=== PATIENT | female | born 1965 | race Caucasian/White ===

== ENCOUNTER → 2019-11-17 | Outpatient (CLI) | payer BC ==
[~2019-11-17] MED LIST: ACET500T68 PO; ASCO500C PO; CALC-178 PO; FLUO10CA13 PO; GLUC-11 PO; HYDR-2765 PO; IBUP200T58 PO; MAGN500C10 PO; multivitamin gummies; tumeric
--- NOTE | 2019-11-17 13:27 | KCIC ---
EXAM: Cervical spine MRI without contrast. HISTORY: Pain. TECHNIQUE: Multiplanar, multisequence magnetic resonance imaging of the cervical spine was performed without contrast. COMPARISON: None. FINDINGS: There is instrumented anterior spinal fusion and interbody fusion at C4-C6. There is minimal anterolisthesis of C3 to on C3. There is degenerative endplate remodeling at all levels. There is associated endplate edema due to degenerative change on the left at C6-C7. There is disc space narrowing at C6-C7. There is no fracture there is disc space narrowing at this level. There is no fracture or suspicious osseous lesion. The skull base and posterior fossa are unremarkable. There is deformation of the cervical spinal cord at multiple levels due to stenosis. There is linear T2 hyperintensity within the right ventral aspect of the cervical spinal cord at C5-C6. This measures approximately 4 mm greater caudally by 2 mm transversely by 1 mm anteroposteriorly and is consistent with myelomalacia. No spinal cord edema, demyelination or syringohydromyelia is seen. There is a small incidental osseous hemangioma within C2. At C2-C3, there is severe right and mild left facet arthropathy. There is moderate right foraminal stenosis. There is a suspected 10 mm posterior left facet joint synovial cyst. At C3-C4, there is a left posterior lateral disc protrusion and osteophyte complex superimposed on endplate remodeling. There is mild right and moderate left facet arthropathy. There is left uncovertebral arthropathy. There is severe left foraminal stenosis. There is minimal central canal stenosis measuring 9.0 mm in anterior posterior dimension. At C4-C5, there is instrumented fusion. There is a right paracentral osteophyte which slightly deforms the right ventral aspect of the spinal cord. There is mild left facet arthropathy. There is no stenosis. At C5-C6, there is instrumented fusion. There is a posterior central osteophyte which deforms the ventral aspect of spinal cord. There is a small focus of myelomalacia within the right ventral aspect of the spinal cord at this level. There is mild central canal stenosis measuring 8.3 mm in anterior posterior dimension. At C6-C7, there is a diffuse disc bulge and endplate osteophytosis. There is bilateral uncovertebral arthropathy. There is severe bilateral foraminal stenosis. There is deformation of the spinal cord and moderate central canal stenosis measuring 6.8 mm in each posterior dimension. At C7-T1, there is a shallow right lateral recess disc protrusion. There is mild right and moderate left facet arthropathy. There is mild right foraminal stenosis. There are incidental dilated nerve root sheath cysts within the extra foraminal spaces at this level. IMPRESSION: 1. Instrumented anterior spinal fusion and interbody fusion at C4-C6. 2. Tiny focus of myelomalacia within the right ventral aspect of the cervical spinal cord at C5-C6. 3. Multilevel degenerative change throughout the cervical spine, described in detail above. This results in moderate right foraminal stenosis at C2-C3, severe left foraminal and minimal central canal stenosis at C3-C4, mild central canal stenosis at C5-C6, severe bilateral foraminal and moderate central canal stenosis at C6-C7, and mild right foraminal stenosis at C7-T1. Electronically signed by: Mariaelena Cuellar MD (11/17/2019 1:24 PM) [facility]
--- NOTE | 2019-11-17 13:35 | KCIC ---
EXAM: Lumbar spine MRI without contrast. HISTORY: Lower back pain. TECHNIQUE: Multiplanar, multisequence magnetic resonance imaging of the lumbar spine was performed without contrast. COMPARISON: None. FINDINGS: There is mild lumbar scoliosis and hyperlordosis. There is grade 1 anterolisthesis of L5 on S1, measuring 3 mm. There is 3 mm retrolisthesis of L2 on L3 and L3 on L4. There is multilevel endplate remodeling. There is edema within the right greater than left L5 and S1 pedicles, the appearance of which favors a degenerative etiology or stress reaction. No fracture is seen. At L1-L2, there is no stenosis. At L2-L3, there is endplate remodeling. There is mild retrolisthesis. There is mild bilateral foraminal stenosis. At L3-L4, there is a disc bulge and endplate remodeling. There is minimal bilateral facet arthropathy. There is slight retrolisthesis. There is no stenosis. At L4-L5, there is moderate bilateral facet arthropathy. There is no stenosis. At L5-S1, there is bilateral lateral endplate remodeling. There is moderate right and severe left facet arthropathy. There is grade 1 anterolisthesis. There is mild right greater than left foraminal stenosis. IMPRESSION: 1. Multilevel degenerative change involving the lumbar spine, described in detail above. This is associated with mild bilateral foraminal stenosis at L2-L3 and L5-S1. 2. Mild lumbar scoliosis and hyperlordosis. There is also mild listhesis at the aforementioned levels. 3. Edema within the right greater than left L5 and S1 pedicles, likely degenerative or due to a stress reaction. No fracture is seen. Electronically signed by: Mariaelena Cuellar MD (11/17/2019 1:32 PM) [facility]
== END ==
LOC: KCIC MRI 12:22
PROVIDERS: ATTEND Family Medicine
DX: M47.816 Spondylosis without myelopathy or radiculopathy, lumbar region (principal); G95.89 Other specified diseases of spinal cord; M48.03 Spinal stenosis, cervicothoracic region; M41.86 Other forms of scoliosis, lumbar region; G95.19 Other vascular myelopathies
CPT/HCPCS: 72141; 72148

== ENCOUNTER → 2019-11-25 | Outpatient (CLI) | payer BC ==
[~2019-11-25] MED LIST changes: +IOHEXOL 180 MG/ML 10 ML VIAL. ONE; +methylPREDNISolone ACETATE 40 MG/ML VIAL. ONE; +methylPREDNISolone ACETATE 80 MG/ML VIAL. ONE
--- NOTE | 2019-11-25 12:23 | PDOC2 ---
INITIAL PAIN CONSULT DATE OF SERVICE: DOS: DATE: 11/25/19 TIME: 12:13 CHIEF COMPLAINT: Chief Complaint: Low back and bilateral lower extremity pain Neck and bilateral upper extremity pain HISTORY OF PRESENT ILLNESS: 54-year-old female presents history of pain in the low back bilateral lower extremities for about 4 months now. Patient ports not result of any specific injury or accident that she is aware but had pain for years is been getting worse over the past 4 months or so. Patient reports in the low back bilateral lower extremities posterior gluteus posterior lateral thighs posterior calves and occasionally in the lower legs mostly in the back itself patient reports it is constant sharp stabbing throbbing shooting in the legs occasionally intermittent in intensity always present changes during the day burning and aching as well. Patient which is worse with walking standing change positions also awakens her from sleep about 4-5 times at night. Patient reports it can affect her bowel bladder control but no loss of continence just some increased frequency does affect her ability to walk fairly significantly but she is not using any assistive devices. Patient rates her disability rating 0-10 10 being the worst as an 8-9 with family home responsibilities 8 with recreation social activity 7-8 with occupation sexual behavior 7 8 with self-care and a 9 with life support activities. Patient has had physical therapy in the past also chiropractic treatment which is not been very helpful at some trigger point injections 2011 and epidural injections which were not significant helpful as well. Patient is taking hydrocodone Tylenol Advil all of which did not decrease the pain significantly. Patient is currently doing some exercise and therapy on her own but no formal therapy recently. PAST MEDICAL HISTORY: PMH: Hearing loss, arthritis, osteoporosis, cigarette smoking PREVIOUS SURGERIES: Past Surgical Hx: Cervical fusion 2005, 2002, right ankle ORIF and right leg plating of the tibia CURRENT MEDICATIONS: Current Meds: Active Scripts Medications Dose Route/Sig Max Daily Dose Days Date Category Vitamin C (Ascorbic Acid) 500 Mg Capsule.er 2 Cap PO DAILY 30 11/25/19 Reported [multivitamin gummies] 2 DAILY 11/25/19 Reported Magnesium (Magnesium Oxide) 500 Mg Capsule 600 Mg PO BID 11/25/19 Reported Cidaflex Tablet (Glucosamine Hcl/Chondr Flaherty A Na) 1 Each Tablet 2 Each PO BID 11/25/19 Reported [tumeric] 1 11/25/19 Reported Calcium 1,000 + D3 Caplet (Calcium Carbonate/Vitamin D3) 1 Each Tablet 1 Each PO BID 11/25/19 Reported Advil (Ibuprofen) 200 Mg Tablet 400 Mg PO Q6HRS 11/25/19 Reported Acetaminophen 500 Mg Tablet 2 Tab PO PRN Q6HRS PRN 15 11/25/19 Reported Hydrocodone-Apap 7.5-325 (Hydrocodone Bit/Acetaminophen) 1 Tab Tablet 1 Tab PO PRN Q6HRS PRN 11/25/19 Reported Prozac (Fluoxetine Hcl) 10 Mg Capsule 1 Cap PO HS 11/25/19 Reported ALLERGIES; Allergies: Coded Allergies: morphine (Verified Adverse Reaction, Intermediate, itching, 11/25/19) FAMILY HISTORY: Family Hx: No major medical problems or conditions that she lists SOCIAL HISTORY: Social Hx: Patient drinks alcohol once or twice a year smokes very little but does smoke cigarettes occasionally smokes marijuana up to daily is single [place] 1 child living at home and has her own [employer]. REVIEW OF SYSTEMS: ROS: Positive for those items in history of present illness, all systems reviewed otherwise negative ,is complete full and well-documented on patient's chart. PHYSICAL EXAM: VS: Blood pressure is 120/46 pulse 63 respiration 16 temperature 98.9 F height is 5 feet 4 inches weight is 180 pounds PE: PHYSICAL EXAMINATION: GENERAL: The patient is awake, alert, oriented, appropriate, very pleasant demeanor HEENT: Shows normocephalic, atraumatic. Extraocular movements are intact and symmetrical. Oral cavity: Mucous membranes moist and pink. Dentition is intact. NECK: Shows anterior throat supple without palpable lymphadenopathy noted. Swallow reflex symmetrical. CHEST: Shows normal on inspection. Breath sounds are clear bilaterally, no rales rhonchi or wheezes auscultated. HEART: Shows S1, S2 clear. No murmurs auscultated. ABDOMEN: Soft, nontender, nondistended. No palpable organomegaly is noted. No rebound or guarding demonstrated. BACK: Shows spine grossly in the midline. Normal-appearing cervical lordotic curvature, patient has good rotation motion cervical spine both laterally as well as extension flexion without significant increase in pain.. There is slightly increased thoracic kyphosis, some minor flattening of the lumbar lordotic curvature. Lumbar paraspinous muscles show symmetrical on inspection, on palpation shows some moderate tenderness diffusely throughout the upper, middle and lower distribution of the paraspinous muscles bilaterally and also into the lower thoracic paraspinous musculature, firm and tender, but without specific trigger points, without radiation of pain. The patient has good rotational motion of the lumbar spine, both laterally as well as extension and flexion without significant difficulty. No tenderness over the spinous processes, sacrum or sacroiliac regions. EXTREMITIES: Lower extremities show deep tendon reflexes 2+ in the patellar and tendo calcaneus tendons. Motor exam is 4 on a scale of 5 with right dorsiflexion, extension, quadriceps and hamstring flexion and 5/5 on the left. Peripheral pulses are 1+ posterior tibial. No peripheral edema is noted bilaterally. Lower extremities are warm and dry to touch, equal in color and appearance. Straight leg raise noted to be negative bilaterally. Gaenslen's and Royer's maneuvers are [] as well. The patient is able to stand, stand her toes without significant difficulty or loss of balance walks with a normal- appearing gait without any assistive devices did not appear to favor the right or left lower extremity significantly. Upper extremities show deep tendon reflexes at 2+ in the biceps and triceps tendons motor exam strong with architectural engineer strength rated 5 out of 5 as is bicep and tricep flexion and symmetrical. Peripheral pulses are 2+ radial no peripheral edema is noted bilaterally. SKIN: Shows warm and dry, good turgor. No edema. No sores, rashes or bruising throughout. IMPRESSION: Impression: 54-year-old female with approximate 4-month history increasing pain low back bilateral lower extremities MRI scan lumbar spine with multilevel degenerative change with mild bilateral foraminal stenosis at L2-3 and L5-S1 Cervical MRI scan with instrumented spinal fusion at C4-C6 with multilevel degenerative change throughout the cervical spine mild right foraminal stenosis at C2-C3 severe left foraminal and minimal central canal stenosis at C3-4 mild central canal stenosis C5-C6 severe bilateral foraminal and mild to moderate central canal stenosis at C6-7 Arthritis Smoking and marijuana use Plan: Options were discussed with the patient including conservative medical management physical therapies interventional techniques. She like to pursue dimensional techniques. We discussed a lumbar epidural steroid just use description as well as anatomical model to describe the procedure. Risks were discussed including but not limited to: Bleeding, infection, possibility of epidural hematoma and subsequent neurological compromise, dural puncture, headaches, spinal cord and/or nerve damage, side effects of steroid medication, and poor results regarding pain control. Patient understands wished to proceed. Patient return to clinic in possibly 2 weeks for follow-up was counseled as return appointment activity level and side effects to be aware of. Procedure is lumbar epidural steroid injection under local anesthetic using sterile prep and drape at the L5-S1 level using C-arm fluoroscopic guidance in both AP and lateral views medications injected is 120 mg Depo-Medrol + 10 mL preservative-free normal saline and 2 mL contrast- condition at discharge is stable patient tolerated procedure well had no complications. COY COTTRELL MD Nov 25, 2019 12:23
== END | disposition home or self-care (01) ==
LOC: PNCL 08:21
PROVIDERS: ATTEND Anesthesiology
DX: M51.36 Other intervertebral disc degeneration, lumbar region (principal); M48.061 Spinal stenosis, lumbar region without neurogenic claudication; M48.02 Spinal stenosis, cervical region; M19.90 Unspecified osteoarthritis, unspecified site; Z87.891 Personal history of nicotine dependence; Z88.8 Allergy status to other drugs, medicaments and biological substances; Z79.899 Other long term (current) drug therapy
CPT/HCPCS: 62323; J1030; J1040; Q9965

== ENCOUNTER → 2020-01-11 | Outpatient (CLI) | payer BC ==
[~2020-01-11] MED LIST changes: +BUPIVACAINE MPF 0.25% 10 ML VIAL. ONE
--- NOTE | 2020-01-11 09:02 | PDOC ---
Progress Note - Pain Clinic Date of Service: DOS: DATE: 01/11/20 TIME: 08:57 Diagnosis: Dx: Lumbar degenerative disc disease with lumbar and lumbosacral spondylosis Cervical radiculopathy with cervical degenerative disease and cervical postlaminectomy syndrome History or Present Illness: HPI: 54-year-old female returns follow-up status post lumbar epidural steroid injection x1. Patient reports only minimal decrease in pain for about 2 days and the pain returned now only in the back itself without radiation to lower extremity on the right side that she had previously but the back is still significantly painful with rotation motion especially with extension of the lumbar spine axial loading better with forward flexion worse with sitting for prolonged periods walking for about 10 to 15 minutes is all she can manage because of the pain patient reports it is keeping her from sleep at night about every 5 hours awakens her from sleep for the first few days she was doing better but the pain is fairly significant in the low back since that time however her right leg is doing much better. Patient ports her pain is a 10 on scale 10 is worse of the past week 8-9 on average 7-8 on its least is an 8 today patient describes aching sharp dull tight shooting across the back burning cramping stabbing again not radiating to the lower extremities any further but to severe and unbearable at times with sitting or standing and walking. Patient reports difficulty getting up from a seated position as well she has gait is very slow and deliberately pressure off of her back especially with extension of the lumbar spine. Physical Exam: VS: Blood pressure is 131/79 pulse 67 respirations 18 temperature 98.2 F height is 5 feet 4 inches weight is 182 pounds PE: PHYSICAL EXAMINATION: GENERAL: The patient is awake, alert, oriented, appropriate, very pleasant demeanor HEENT: Shows normocephalic, atraumatic. Extraocular movements are intact and symmetrical. Oral cavity: Mucous membranes moist and pink. NECK: Shows anterior throat supple without palpable lymphadenopathy noted. Swallow reflex symmetrical. CHEST: Shows normal on inspection. Breath sounds are clear bilaterally. HEART: Shows S1, S2 clear. No murmurs auscultated. ABDOMEN: Soft, nontender, nondistended, obese. No palpable organomegaly is noted. No rebound or guarding demonstrated. BACK: Shows spine grossly in the midline. Normal-appearing cervical lordotic curvature. There is slightly increased thoracic kyphosis, some minor flattening of the lumbar lordotic curvature. Lumbar paraspinous muscles show symmetrical on inspection, on palpation shows some moderate tenderness diffusely throughout the upper, middle and lower distribution of the paraspinous muscles bilaterally without specific trigger points, without radiation of pain. The patient has good rotational motion of the lumbar spine, with significant tenderness with extension greater than 10 degrees also right and left lateral rotation worse to the right greater than 10 degrees but also present to the left at 10 degrees better with forward flexion at 45 degrees without significant pain reported. No tenderness over the spinous processes, sacrum or sacroiliac regions. EXTREMITIES: Lower extremities show deep tendon reflexes 2+ in the patellar and tendo calcaneus tendons. Motor exam is 4 on a scale of 5 with right dorsiflexion, extension, quadriceps and hamstring flexion and 5/5 on the left. Peripheral pulses are 1+ posterior tibial. No peripheral edema is noted bilaterally. Lower extremities are warm and dry to touch, equal in color and appearance. SKIN: Shows warm and dry, good turgor. No edema. No sores, rashes or bruising throughout. Procedure: Procedure: Options were discussed with the patient. Patient's old chart was reviewed as her current medication regimen updated current review of systems updated today as well. We will proceed with bilateral L4-5 and L5-S1 facet joint injections with fluoroscopic guidance. Risks were discussed including but not limited to: Bleeding, infection, possibility of epidural hematoma and subsequent neurological compromise, dural puncture, headaches, spinal cord and/or nerve damage, side effects of steroid medication, and poor results regarding pain control. Patient understands wished to proceed. Patient return to the clinic in approximate 2 weeks for follow-up was counseled as to return appointment activity level and side effects to be aware of. Medication Injected: Med Injected: Under sterile prep and drape using C-arm fluoroscopic guidance AP and lateral and oblique views, bilateral L4-5 and L5-S1 facet joint injections, medications injected: 120 mg Depo-Medrol +4 cc 0.25% bupivacaine +2 cc contrast. Condition at discharge stable patient tolerated the procedure well and no complications. Condition at Discharge: Condition at Discharge: Condition at discharge is stable patient tolerated procedure well had no complications. COY COTTRELL MD Jan 11, 2020 09:01
== END ==
LOC: PNCL 08:15
PROVIDERS: ATTEND Anesthesiology
DX: M51.36 Other intervertebral disc degeneration, lumbar region (principal); M50.10 Cervical disc disorder with radiculopathy, unspecified cervical region; M46.1 Sacroiliitis, not elsewhere classified; M47.816 Spondylosis without myelopathy or radiculopathy, lumbar region; M47.817 Spondylosis without myelopathy or radiculopathy, lumbosacral region; Z88.8 Allergy status to other drugs, medicaments and biological substances; Z79.899 Other long term (current) drug therapy
CPT/HCPCS: 64493; 64494; J1030; J1040; J3490; Q9965; 64635; 64636

== ENCOUNTER → 2020-02-02 | Outpatient (CLI) | payer BC ==
[~2020-02-02] MED LIST changes: -BUPIVACAINE MPF 0.25% 10 ML VIAL. ONE; -IOHEXOL 180 MG/ML 10 ML VIAL. ONE; -methylPREDNISolone ACETATE 40 MG/ML VIAL. ONE; -methylPREDNISolone ACETATE 80 MG/ML VIAL. ONE
--- NOTE | 2020-02-02 09:04 | PDOC ---
Progress Note - Pain Clinic Date of Service: DOS: DATE: 02/02/20 TIME: 08:58 Diagnosis: Dx: Lumbar radiculopathy with lumbar degenerative disc disease lumbar and lumbosacral spondylosis Cervical radiculopathy with cervical degenerative disease and cervical postlaminectomy syndrome History or Present Illness: HPI: 54-year-old female returns follow-up status post epidural steroid injection x1 and lumbar bilateral facet joint injections x1. Patient reports no significant decrease in pain with the epidural however had 2 days of almost 100% relief after the injections but the pain returned fairly quickly and now has significant pain in the low back bilaterally worse with walking standing changing positions better with sitting or laying down but has been waking her from sleep sporadically over the last 2 weeks or so. Patient reports she is upset today because she is having difficulty with her job and is worried about her insurance coverage in the future. Patient reports the pain is in the low back itself some pain rating to the superior aspect of the mid and upper back mostly in the low back aching sharp dull tight and shooting burning and stabbing can be constant and severe unbearable at times rates her pain is a 9 on scale 10 is worse over the past week 9-10 on average and 8 its least and is an 8 today. Patient reports no new motor or sensory deficits no new bowel or bladder incontinence or complaints. Physical Exam: VS: Blood pressure is 123/70 pulse 74 respirations are 16 temperature 98.3 F height is 5 feet 4 inches weight is 174 pounds PE: PHYSICAL EXAMINATION: GENERAL: The patient is awake, alert, oriented, appropriate, very pleasant demeanor HEENT: Shows normocephalic, atraumatic. Extraocular movements are intact and symmetrical. Oral cavity: Mucous membranes moist and pink. NECK: Shows anterior throat supple without palpable lymphadenopathy noted. Swallow reflex symmetrical. CHEST: Shows normal on inspection. Breath sounds are clear bilaterally. HEART: Shows S1, S2 clear. No murmurs auscultated. ABDOMEN: Soft, nontender, nondistended. No palpable organomegaly is noted. No rebound or guarding demonstrated. BACK: Shows spine grossly in the midline. Normal-appearing cervical lordotic curvature. There is slightly increased thoracic kyphosis, some minor flattening of the lumbar lordotic curvature. Lumbar paraspinous muscles show symmetrical on inspection, on palpation shows some moderate tenderness diffusely throughout the upper, middle and lower distribution of the paraspinous muscles bilaterally and also into the lower thoracic paraspinous musculature, firm and tender bilaterally, but without specific trigger points, and without radiation of pain. The patient has good rotational motion of the lumbar spine, both laterally, with moderate tenderness more to the right than the left with rotation past 10 degrees also significantly no tenderness over the spinous processes, sacrum or sacro pain with extension greater than 10 degrees and axial loading of the lumbar spine better with forward flexion at 45 degrees was performed without significant difficulty. EXTREMITIES: Lower extremities show deep tendon reflexes 2+ in the patellar and tendo calcaneus tendons. Motor exam is 4 on a scale of 5 with right dorsiflexion, extension, quadriceps and hamstring flexion and 5/5 on the left. Peripheral pulses are 1+ posterior tibial. No peripheral edema is noted bilaterally. Lower extremities are warm and dry to touch, equal in color and appearance. SKIN: Shows warm and dry, good turgor. No edema. No sores, rashes or bruising throughout. Procedure: Procedure: Options were discussed with the patient. Patient chart was reviewed as her current medication regimen updated current review of systems updated today as well. Milo options and patient would like to wait to better evaluate her job situation and insurance situation in the near future. We discussed radiofrequency ablation as she has done well with this about 8 years ago in the lumbar spine and with good results after first diagnostic blocks would recommend repeating these to ensure that we can reproduce the results. Patient understands would like to wait to assess her insurance situation first. We will give patient Medrol Dosepak to try in the meantime as well as changing her medication from hydrocodone to oxycodone 7.5 mg. Patient given instructions will side effects with each of the medications will follow-up as scheduled. Medication Injected: Med Injected: None Condition at Discharge: Condition at Discharge: Condition at discharge is stable. COY COTTRELL MD Feb 02, 2020 09:04
== END | disposition home or self-care (01) ==
LOC: PNCL 08:31
PROVIDERS: ATTEND Anesthesiology
DX: M51.16 Intervertebral disc disorders with radiculopathy, lumbar region (principal); M47.26 Other spondylosis with radiculopathy, lumbar region; M50.10 Cervical disc disorder with radiculopathy, unspecified cervical region; M96.1 Postlaminectomy syndrome, not elsewhere classified; Z79.899 Other long term (current) drug therapy; Z88.6 Allergy status to analgesic agent
CPT/HCPCS: 99212; G0463

== ENCOUNTER → 2021-05-01 | Outpatient (CLI) | payer MEDICAID ==
[~2021-05-01] MED LIST changes: +BUPR150T21 PO; +BUSP10TA PO; +DULO60CA7 PO; +GABA300C18 PO; +IOHEXOL 180 MG/ML 10 ML VIAL. ONE; +OLAN1TAB5 PO; +methylPREDNISolone ACETATE 80 MG/ML VIAL. ONE
--- NOTE | 2021-05-01 10:58 | PDOC ---
Progress Note - Pain Clinic Date of Service: DOS: DATE: 05/01/21 TIME: 10:53 Diagnosis: Dx: Lumbar radiculopathy with lumbar degenerative disc disease and lumbar spondylosis Cervical radiculopathy with cervical degenerative disease cervical postlaminectomy syndrome History or Present Illness: HPI: 55-year-old female returns last seen January 2020, with complaints of neck and bilateral upper extremity pain as well as low back pain with complaints of pain over the past 5 to 6 months now increasing low back and now with radicular pain significantly in the right lower extremity as she had undergone medial branch facet blocks for low back pain however now the pain is changed and is in the right lower extremity in the posterior gluteus posterior thigh posterior calf as well as the lateral thigh calf on the right side worse with walking standing changing positions patient also has pain the base the neck and shoulders with radiating pain in the upper extremities and status post cervical 3 4 fusion anteriorly in July 2020. Patient reports her chief complaint is low back right lower extremity pain tingling and burning in the arms and legs dull pain in the neck and back and variable in the back at times worse with standing walking or standing still for more than 10 to 15 minutes patient reports is better with sitting or lying down but wakes her from sleep at least 2-4 times at night patient reports he needs to reposition or take pain medication and to get out of bed and walking to get back to sleep after that. Patient rates her pain as a 9 on a scale of 10 at its worst of the past week 8 on average 6 its least is a 7 today. Patient reports no motor deficits but significant fatigability of the right lower extremity with ambulation. Patient not use any assistive devices. Patient reports no bowel or bladder incontinence. Physical Exam: VS: Blood pressure is 04/11/1952 pulse 77 respirations are 18 temperature is 98.3 F height is 5 feet 4 inches weight is 214 pounds. PE: PHYSICAL EXAMINATION: GENERAL: The patient is awake, alert, oriented, appropriate, very pleasant in demeanor HEENT: Shows normocephalic, atraumatic. Extraocular movements are intact and symmetrical. Oral cavity: Mucous membranes moist and pink. Dentition is intact. NECK: Shows anterior throat supple without palpable lymphadenopathy noted. Swallow reflex symmetrical. CHEST: Shows normal on inspection. Breath sounds are clear bilaterally, no rales or rhonchi. HEART: Shows S1, S2 clear. No murmurs auscultated. ABDOMEN: Soft, nontender, nondistended. No palpable organomegaly is noted. BACK: Shows spine grossly in the midline. Normal-appearing cervical lordotic curvature. There is slightly increased thoracic kyphosis, some flattening of the lumbar lordotic curvature. Lumbar paraspinous muscles show symmetrical on inspection, on palpation shows some moderate tenderness diffusely throughout the upper, middle and lower distribution of the paraspinous muscles without specific trigger points, without radiation of pain. The patient has good rotational motion of the lumbar spine, both laterally as well as extension and flexion without significant difficulty. No tenderness over the spinous processes, sacrum or sacroiliac regions. EXTREMITIES: Lower extremities show deep tendon reflexes 2 in the patellar and tendo calcaneus tendons. Motor exam is 4 on a scale of 5 with right dorsiflexion, extension, quadriceps and hamstring flexion and []/5 on the left. Peripheral pulses are 1 posterior tibial. No peripheral edema is noted bilaterally. Lower extremities are warm and dry to touch, equal in color and appearance. Upper extremities show deep tendon reflexes 2+ in the bicep tricep tendons, motor exam strong with manager supplier strength rated 5 out of 5 as is bicep and tricep flexion bilaterally. Shoulder shrug is strong and intact without loss of strength on resistance. SKIN: Shows warm and dry, good turgor. No edema. No sores, rashes or bruising throughout. Procedure: Procedure: Options were discussed with the patient. Patient's old chart was viewed as her current medication regimen updated current review of systems updated today as well. As patient has clinical radiculopathy in the right L5-S1 dermatomal distribution, we will proceed with a lumbar epidural steroid injection today with fluoroscopic guidance. Risks were discussed including but not limited to: Bleeding, infection, possibility of epidural hematoma and subsequent neurological compromise, dural puncture, headaches, spinal cord and/or nerve damage, side effects of steroid medication, and poor results regarding pain control. Patient understands and wished to proceed. Patient will return to the clinic in approximately 2 weeks for follow-up, was counseled as to return appointment, activity level, and side effects to be aware of. Medication Injected: Med Injected: Procedure is lumbar epidural steroid injection under local anesthetic using sterile prep and drape at the L5-S1 level using C-arm fluoroscopic guidance in both AP and lateral views medications injected is 120 mg Depo-Medrol +10mL preservative-free normal saline and 2 mL contrast- condition at discharge is stable patient tolerated procedure well had no complications. Condition at Discharge: Condition at Discharge: Condition at discharge stable, paced tolerated procedure well and had no complications. COY COTTRELL MD May 01, 2021 10:58
--- NOTE | 2021-05-01 10:59 | PDOC4 ---
Procedure Note: ICD 10 Code: ICD 10 Code: M54.17 M51.87 Procedure Note: Patient was consented for lumbar epidural steroid injection with fluoroscopic guidance. Risks were discussed including but not limited to: Bleeding, infection, possibility of epidural hematoma and subsequent neurological compromise, dural puncture, headaches, spinal cord and/or nerve damage, side effects of steroid medication, and poor results regarding pain control. Patient understands and wished to proceed. Procedure is lumbar epidural steroid injection under local anesthetic using sterile prep and drape at the L5-S1 level using C-arm fluoroscopic guidance in both AP and lateral views medications injected is 120 mg Depo-Medrol +10mL preservative-free normal saline and 2 mL contrast- condition at discharge is stable patient tolerated procedure well had no complications. COY COTTRELL MD May 01, 2021 10:59
== END | disposition home or self-care (01) ==
LOC: PNCL 10:02
PROVIDERS: ATTEND Anesthesiology
DX: M51.16 Intervertebral disc disorders with radiculopathy, lumbar region (principal); M47.26 Other spondylosis with radiculopathy, lumbar region; M50.10 Cervical disc disorder with radiculopathy, unspecified cervical region; M96.1 Postlaminectomy syndrome, not elsewhere classified; Z79.899 Other long term (current) drug therapy; Z88.6 Allergy status to analgesic agent
CPT/HCPCS: 62323; J1040; Q9965

== ENCOUNTER → 2021-05-28 | Outpatient (CLI) | payer MEDICAID ==
[~2021-05-28] MED LIST changes: +MAGN500C PO; -MAGN500C10 PO; -methylPREDNISolone ACETATE 80 MG/ML VIAL. ONE
--- NOTE | 2021-05-28 11:22 | PDOC ---
Progress Note - Pain Clinic Date of Service: DOS: DATE: 05/28/21 TIME: 11:19 Diagnosis: Dx: Lumbar radiculopathy with lumbar degenerative disease and lumbar and lumbosacral spondylosis History or Present Illness: HPI: 55-year-old female returns for follow-up status post lumbar epidural steroid injection patient reports near 1% improvement for the first week of the pain returned fairly significantly and now is on the left leg as well as the right leg with previously was only on the right side patient reports is now rating to left leg not as severely as the right but still significant patient reports in the posterior gluteus posterior thigh posterior calf again some on the lateral right hip as well but now on the left posterior thigh and calf. Patient reports no recent injuries no new motor or sensory deficits no bowel or bladder incontinence patient reports her pain is a 9 on scale 10 is worse over the past week 8 on average 6 at its least and is a 6 today patient describes a sharp in the back shooting the legs tingling and burning can be constant with walking standing better with sitting or laying down for the first week or so patient was doing much better with increased distance walking doing household activities work activities try with greater ease and comfort but now the pain returning no bowel or bladder incontinence however, just new findings of increased pain in the left lower extremity as well as the right. Physical Exam: VS: Blood pressure is 158/83 pulse 70 respirations 18 temperature is 98.2 F height is 5 feet 4 inches weight is 219 pounds. PE: PHYSICAL EXAMINATION: GENERAL: The patient is awake, alert, oriented, appropriate, very pleasant in demeanor HEENT: Shows normocephalic, atraumatic. Extraocular movements are intact and symmetrical. Oral cavity: Mucous membranes moist and pink. Dentition is intact. NECK: Shows anterior throat supple without palpable lymphadenopathy noted. Swallow reflex symmetrical. CHEST: Shows normal on inspection. Breath sounds are clear bilaterally. HEART: Shows S1, S2 clear. No murmurs auscultated. ABDOMEN: Soft, nontender, nondistended. No palpable organomegaly is noted. BACK: Shows spine grossly in the midline. Normal-appearing cervical lordotic curvature. There is slightly increased thoracic kyphosis, some mild flattening of the lumbar lordotic curvature. Lumbar paraspinous muscles show symmetrical on inspection, on palpation shows some moderate tenderness diffusely throughout the upper, middle and lower distribution of the paraspinous muscles without specific trigger points, without radiation of pain. The patient has good rotational motion of the lumbar spine, both laterally as well as extension and flexion without significant difficulty. No tenderness over the spinous processes, sacrum or sacroiliac regions. EXTREMITIES: Lower extremities show deep tendon reflexes 2+ in the patellar and tendo calcaneus tendons. Motor exam is 4 on a scale of 5 with right dorsiflexion, extension, quadriceps and hamstring flexion and 5/5 on the left. Peripheral pulses are 1+ posterior tibial. No peripheral edema is noted bilaterally. Lower extremities are warm and dry to touch, equal in color and appearance. SKIN: Shows warm and dry, good turgor. No edema. No sores, rashes or bruising throughout. Procedure: Procedure: Options discussed with the patient. Patient's old chart was reviewed as her current medication regimen updated current review of systems updated today as well. We will proceed with a lumbar epidural steroid injection today with fluoroscopic guidance. Risks were discussed including but not limited to: Bleeding, infection, possibility of epidural hematoma and subsequent neurological compromise, dural puncture, headaches, spinal cord and/or nerve damage, side effects of steroid medication, and poor results regarding pain control. Patient understands and wished to proceed. Patient will return to the clinic in approximately 2 weeks for follow-up, was counseled as to return appointment, activity level, and side effect to be aware of. Medication Injected: Med Injected: Procedure is lumbar epidural steroid injection under local anesthetic using sterile prep and drape at the L5-S1 level using C-arm fluoroscopic guidance in both AP and lateral views medications injected is 20 mg dexamethasone +10mL preservative-free normal saline and 2 mL contrast- condition at discharge is stable patient tolerated procedure well had no complications. Condition at Discharge: Condition at Discharge: Condition at discharge stable, patient Prema the procedure well and had no c omplications. COY COTTRELL MD May 28, 2021 11:22
--- NOTE | 2021-05-28 11:23 | PDOC4 ---
Procedure Note: ICD 10 Code: ICD 10 Code: M54.17 M51.87 Procedure Note: Patient was consented for lumbar epidural steroid injection with fluoroscopic guidance. Risks were discussed including but not limited to: Bleeding, infection, possibility of epidural hematoma and subsequent neurological compromise, dural puncture, headaches, spinal cord and/or nerve damage, side effects of steroid medication, and poor results regarding pain control. Patient understands and wished to proceed. Procedure is lumbar epidural steroid injection under local anesthetic using sterile prep and drape at the L5-S1 level using C-arm fluoroscopic guidance in both AP and lateral views medications injected is 20 mg dexamethasone +10mL preservative-free normal saline and 2 mL contrast- condition at discharge is stable patient tolerated procedure well had no complications. COY COTTRELL MD May 28, 2021 11:23
== END | disposition home or self-care (01) ==
LOC: PNCL 10:15
PROVIDERS: ATTEND Anesthesiology
DX: M51.16 Intervertebral disc disorders with radiculopathy, lumbar region (principal); M47.27 Other spondylosis with radiculopathy, lumbosacral region; M47.26 Other spondylosis with radiculopathy, lumbar region; Z79.899 Other long term (current) drug therapy; Z88.6 Allergy status to analgesic agent
CPT/HCPCS: 62323; Q9965

== ENCOUNTER → 2021-06-21 | Outpatient (CLI) | payer MEDICAID ==
[~2021-06-21] MED LIST changes: +BUPIVACAINE MPF 0.25% 10 ML VIAL. ONE; +DEXAMETHASONE PRES.FREE 10 MG/ML VIAL. ONE
--- NOTE | 2021-06-21 12:11 | PDOC ---
Progress Note - Pain Clinic Date of Service: DOS: DATE: 06/21/21 TIME: 12:08 Diagnosis: Dx: Lumbar and lumbosacral spondylosis Cervical radiculopathy with cervical degenerative disease and cervical postlaminectomy syndrome History or Present Illness: HPI: 55-year-old female returns status post lumbar epidural steroid injection x2. Patient reports the first injection was good for about 1 week secondarily helped for about a day patient's pain is changed and now is no longer radiating in the lower extremities is only in the low back itself slightly more on the right than the left worse with walking standing changing positions, especially walking more than 10 to 15 minutes and standing still in 1 place such as at a sink or preparing meals. Patient reports is better with laying down but still wakes her from sleep about once a night. Patient reports it radiates across the back but no longer in the lower extremities with any significance patient reports an 8 on scale 10 is worse over the past week 7-8 on average 7 its least is a 7 today. Patient ports sharp tingling burning can be shooting across the back which is constant and severe at times patient reports no loss of motor function but significant fatigability of both lower extremities now with walking and standing. Patient reports no bowel or bladder incontinence. Physical Exam: VS: Blood pressure is 123/67 pulse 72 respirations 16 temperature 97.9 F height is 5 foot 4 inches weight is 219 pounds. PE: PHYSICAL EXAMINATION: GENERAL: The patient is awake, alert, oriented, appropriate, very pleasant in demeanor HEENT: Shows normocephalic, atraumatic. Extraocular movements are intact and symmetrical. Oral cavity: Mucous membranes moist and pink. Dentition is intact. NECK: Shows anterior throat supple without palpable lymphadenopathy noted. Swallow reflex symmetrical. CHEST: Shows normal on inspection. Breath sounds are clear bilaterally. HEART: Shows S1, S2 clear. No murmurs auscultated. ABDOMEN: Soft, nontender, nondistended. No palpable organomegaly is noted. BACK: Shows spine grossly in the midline. Normal-appearing cervical lordotic curvature. There is slightly increased thoracic kyphosis, some minor flattening of the lumbar lordotic curvature. Lumbar paraspinous muscles show symmetrical on inspection, on palpation shows some moderate tenderness diffusely throughout the upper, middle and lower distribution of the paraspinous muscles, but without specific trigger points, without radiation of pain. The patient has good rotational motion of the lumbar spine, both laterally as well as extension and flexion, with signifi 5cant tenderness with right lateral rotation compared to left also with extension and axial loading lumbar spine very significant pain more right than left but present bilaterally this is decreased with forward flexion was performed at 45 degrees without significant difficulty. EXTREMITIES: Lower extremities show deep tendon reflexes 2+ in the patellar and tendo calcaneus tendons. Motor exam is 4 on a scale of 5 with right dorsiflexion, extension, quadriceps and hamstring flexion and 5/5 on the left. Peripheral pulses are 1+ posterior tibial. No peripheral edema is noted bilaterally. Lower extremities are warm and dry. SKIN: Shows warm and dry, good turgor. No edema. No sores, rashes or bruising throughout. Procedure: Procedure: Options discussed with patient. Patient's old chart was reviewed as her current medication regimen updated current review of systems updated today as well. We will proceed with bilateral L4-5 L5-S1 medial branch facet blocks today with fluoroscopic guidance. Risks were discussed including but not limited to: Bleeding, infection, possibility of epidural hematoma and subsequent neurological compromise, dural puncture, headaches, spinal cord and/or nerve damage, side effects of steroid medication, and poor results regarding pain control. Patient understands and wished to proceed. Patient return to clinic in approximately 2 weeks for follow-up, was counseled as to return appointment, activity level, and side effect to be aware of. Medication Injected: Med Injected: Under sterile prep and drape using C-arm fluoroscopic guidance AP and lateral and oblique views, bilateral L4-5 and L5-S1 facet joint MB's injections were performed, using 22-gauge quinke needles with stylette's x4,, medications injected: 20 mg dexamethasone +4 cc 0.25% bupivacaine +2 cc contrast. Condition at discharge is stable, patient tolerated the procedure well and no complications. Condition at Discharge: Condition at Discharge: Condition at discharge stable, paced tolerated procedure well and had no complications. COY COTTRELL MD Jun 21, 2021 12:11
--- NOTE | 2021-06-21 12:12 | PDOC4 ---
Procedure Note: ICD 10 Code: ICD 10 Code: M4 7.816 M4 7.817 Procedure Note: Patient was consented for bilateral lumbar L4-5 and L5-S1 facet medial branch blocks with fluoroscopic guidance. Under sterile prep and drape using C-arm fluoroscopic guidance AP and lateral and oblique views, bilateral L4-5 and L5-S1 facet joint MB's injections were performed, using 22-gauge quinke needles with stylette's x4,, medications injected: 20 mg dexamethasone +4 cc 0.25% bupivacaine +2 cc contrast. Condition at discharge is stable, patient tolerated the procedure well and no compli cations. COY COTTRELL MD Jun 21, 2021 12:12
== END | disposition home or self-care (01) ==
LOC: PNCL 10:49
PROVIDERS: ATTEND Anesthesiology
DX: M47.817 Spondylosis without myelopathy or radiculopathy, lumbosacral region (principal); M47.816 Spondylosis without myelopathy or radiculopathy, lumbar region; M50.10 Cervical disc disorder with radiculopathy, unspecified cervical region; M96.1 Postlaminectomy syndrome, not elsewhere classified; Z79.899 Other long term (current) drug therapy; Z88.6 Allergy status to analgesic agent
CPT/HCPCS: 64493; 64494; J1100; J3490; Q9965

== ENCOUNTER → 2021-07-04 | Outpatient (CLI) | payer MEDICAID ==
[~2021-07-04] MED LIST changes: -DEXAMETHASONE PRES.FREE 10 MG/ML VIAL. ONE; +methylPREDNISolone ACETATE 40 MG/ML VIAL. ONE
--- NOTE | 2021-07-04 12:45 | PDOC ---
Progress Note - Pain Clinic Date of Service: DOS: DATE: 07/04/21 TIME: 12:41 Diagnosis: Dx: Lumbar and lumbosacral spondylosis with lumbar degenerative disc disease Cervical radiculopathy with cervical degenerative disc disease and cervical postlaminectomy syndrome History or Present Illness: HPI: 55-year-old female returns for follow-up status post bilateral L4-5 and L5-S1 facet medial branch blocks. Patient reports she did very well with about 90% improvement for the first several days following the injections with the pain returning now in the low back after about a week not quite to baseline but still a significant patient reports its sharp and tight in the back shooting across the back tingling burning cramping and stabbing without significant radiation to the lower extremities patient reports radiating can be constant unbearable with walking standing reaching above her head with her arms and axial loading of the lumbar spine with extension of the lumbar spine. Patient reports much better with sleeping for the first few days with increased activity doing distance walking and household activities travel with greater ease and comfort and again sleeping better but is beginning to disturb her sleep once again she can easily reposition to get back to sleep. Patient reports no loss of motor function of bowel or bladder incontinence. Patient rates her pain as an 8 on scale 10 is worse over the past week 6-7 on average 6 its least is a 6 today. Physical Exam: VS: Blood pressure is 129/52 pulse 67 respirations are 18 temperature 98.1 F weight is 219 pounds. PE: PHYSICAL EXAMINATION: GENERAL: The patient is awake, alert, oriented, appropriate, very pleasant in demeanor HEENT: Shows normocephalic, atraumatic. Extraocular movements are intact and symmetrical. Oral cavity: Mucous membranes moist and pink. Dentition is intact. NECK: Shows anterior throat supple without palpable lymphadenopathy noted. Swallow reflex symmetrical. CHEST: Shows normal on inspection. Breath sounds are clear bilaterally, no rales rhonchi or wheezes auscultated. HEART: Shows S1, S2 clear. No murmurs auscultated. ABDOMEN: Soft, nontender, nondistended. No palpable organomegaly is noted. BACK: Shows spine grossly in the midline. Normal-appearing cervical lordotic curvature. There is slightly increased thoracic kyphosis, some minor flattening of the lumbar lordotic curvature. Lumbar paraspinous muscles show symmetrical on inspection, on palpation shows some moderate tenderness diffusely throughout the upper, middle and lower distribution of the paraspinous muscles, but without specific trigger points, without radiation of pain. The patient has good rotational motion of the lumbar spine, both laterally as well as extension and flexion with moderate tenderness with forward rotation to the left and right is greater than 10 degrees as well as with significant tenderness bilaterally with extension and axial loading of the lumbar spine without radiation. Patient shows good rotation forward with flexion without significant pain on flexion of the lumbar spine. EXTREMITIES: Lower extremities show deep tendon reflexes 2+ in the patellar and tendo calcaneus tendons. Motor exam is 4 on a scale of 5 with right dorsiflexion, extension, quadriceps and hamstring flexion and 4/5 on the left. Peripheral pulses are 1+ posterior tibial. No peripheral edema is noted bilaterally. Lower extremities are warm and dry. SKIN: Shows warm and dry, good turgor. No edema. No sores, rashes or bruising throughout. Procedure: Procedure: Options discussed with the patient. Patient's old chart was reviewed as her current medication regimen updated current review of systems updated today as well. We will proceed with bilateral L4-5 and L5-S1 facet medial branch blocks today with fluoroscopic guidance. Risks were discussed including but not limited to: Bleeding, infection, possibility of epidural hematoma and subsequent neurological compromise, dural puncture, headaches, spinal cord and/or nerve damage, side effects of steroid medication, and poor results regarding pain control. Patient understands and wished to proceed. Patient will return to clinic in approximately 2 weeks for follow-up, was counseled as to return appointment, activity level, and side effects to be aware of. Medication Injected: Med Injected: Under sterile prep and drape using C-arm fluoroscopic guidance AP and lateral and oblique views, bilateral L4-5 and L5-S1 facet joint MB's injections were performed, using 22-gauge quinke needles with stylette's x4,, medications injected: 120 mg methylprednisolone +4 cc 0.25% bupivacaine +2 cc contrast. Condition at discharge is stable, patient tolerated the procedure well and no complications. Condition at Discharge: Condition at Discharge: Condition at discharge stable, paced tolerated the procedure well had no complications. COY COTTRELL MD Jul 04, 2021 12:45
--- NOTE | 2021-07-04 12:45 | PDOC4 ---
Procedure Note: ICD 10 Code: ICD 10 Code: M47.816 M47.817 Procedure Note: Patient was consented for bilateral L4-5 and L5-S1 facet medial branch blocks with fluoroscopic guidance. Risks were discussed including but not limited to: Bleeding, infection, possibility of epidural hematoma and subsequent neurological compromise, dural puncture, headaches, spinal cord and/or nerve damage, side effects of steroid medication, and poor results regarding pain control. Patient understands and wished to proceed. Under sterile prep and drape using C-arm fluoroscopic guidance AP and lateral and oblique views, bilateral L4-5 and L5-S1 facet joint MB's injections were performed, using 22-gauge quinke needles with stylette's x4,, medications injected: 120 mg methylprednisolone +4 cc 0.25% bupivacaine +2 cc contrast. Condition at discharge is stable, patient tolerated the procedure well and no complications. COY COTTRELL MD Jul 04, 2021 12:45
== END | disposition home or self-care (01) ==
LOC: PNCL 11:13
PROVIDERS: ATTEND Anesthesiology
DX: M51.36 Other intervertebral disc degeneration, lumbar region (principal); M47.816 Spondylosis without myelopathy or radiculopathy, lumbar region; M47.817 Spondylosis without myelopathy or radiculopathy, lumbosacral region; M50.10 Cervical disc disorder with radiculopathy, unspecified cervical region; M96.1 Postlaminectomy syndrome, not elsewhere classified; Z79.899 Other long term (current) drug therapy; Z88.6 Allergy status to analgesic agent
CPT/HCPCS: 64493; 64494; J1030; J3490; Q9965

== ENCOUNTER → 2021-07-18 | Outpatient (CLI) | payer MEDICAID ==
[~2021-07-18] MED LIST changes: -BUPIVACAINE MPF 0.25% 10 ML VIAL. ONE; +DEXAMETHASONE PRES.FREE 10 MG/ML VIAL. ONE; -methylPREDNISolone ACETATE 40 MG/ML VIAL. ONE
--- NOTE | 2021-07-18 11:21 | PDOC ---
Progress Note - Pain Clinic Date of Service: DOS: DATE: 07/18/21 TIME: 11:18 Diagnosis: Dx: Lumbar radiculopathy with lumbar degenerative disease lumbar and lumbosacral spondylosis Cervical radiculopathy cervical degenerative disease cervical postlaminectomy syndrome History or Present Illness: HPI: 55-year-old female returns for follow-up status post bilateral lumbar facet medial branch blocks with very good results patient reports about 80% improvement after the last injections with pain in the low back however has increased pain today in the bilateral lower extremities to the ankles and feet over the past 2 weeks or so. Patient reports no loss of motor function no bowel or bladder cons but significant radiating pain in the posterior gluteus posterior thighs posterior calf to the ankles and feet bilaterally. Patient grabs his tingling burning stabbing aching sharp and dull alternating in the bettina k shooting in the legs right essentially equal to left. Patient reports an 8 on scale 10 is worse over the past week 7 on average 6 its least and is a 7 today. Patient reports no bowel or bladder incontinence. Physical Exam: VS: Blood pressure is 114/69 pulse 73 respirations 18 temperature 98.3 F weight is 212 pounds. PE: PHYSICAL EXAMINATION: GENERAL: The patient is awake, alert, oriented, appropriate, very pleasant in demeanor HEENT: Shows normocephalic, atraumatic. Extraocular movements are intact and symmetrical. Oral cavity: Mucous membranes moist and pink. Dentition is intact. NECK: Shows anterior throat supple without palpable lymphadenopathy noted. Swallow reflex symmetrical. CHEST: Shows normal on inspection. Breath sounds are clear bilaterally. HEART: Shows S1, S2 clear. No murmurs auscultated. ABDOMEN: Soft, nontender, nondistended. No palpable organomegaly is noted. BACK: Shows spine grossly in the midline. Normal-appearing cervical lordotic curvature. There is slightly increased thoracic kyphosis, some minor flattening of the lumbar lordotic curvature. Lumbar paraspinous muscles show symmetrical on inspection, on palpation shows some moderate tenderness diffusely throughout the upper, middle and lower distribution of the paraspinous muscles, but without specific trigger points, without radiation of pain. The patient has good rotational motion of the lumbar spine, both laterally as well as extension and flexion without significant difficulty. EXTREMITIES: Lower extremities show deep tendon reflexes deep in the patellar and tendo calcaneus tendons. Motor exam is 4 on a scale of 5 with right dorsiflexion, extension, quadriceps and hamstring flexion and 4/5 on the left. Peripheral pulses are 1+ posterior tibial. No peripheral edema is noted bilaterally. Lower extremities are warm and dry to touch, equal in color and appearance. SKIN: Shows warm and dry, good turgor. No edema. No sores, rashes or bruising throughout. Procedure: Procedure: Options were discussed with patient. Patient's old chart was reviewed as her current medication regimen updated current review of systems updated today as well. We will proceed with a lumbar epidural steroid injection today with fluoroscopic guidance. Risks were discussed including but not limited to: Bleeding, infection, possibility of epidural hematoma and subsequent neurological compromise, dural puncture, headaches, spinal cord and/or nerve damage, side effects of steroid medication, and poor results regarding pain control. Patient understands and wished to proceed. Patient return to clinic in approximately 2 weeks for follow-up, was counseled as to return appointment, activity level, and side effects to be aware of. Medication Injected: Med Injected: Procedure is lumbar epidural steroid injection under local anesthetic using sterile prep and drape at the L5-S1 level using C-arm fluoroscopic guidance in both AP and lateral views medications injected is 20 mg dexamethasone +10mL preservative-free normal saline and 2 mL contrast- condition at discharge is stable patient tolerated procedure well had no complications. Condition at Discharge: Condition at Discharge: Condition at discharge stable, paced tolerated procedure well and had no complications. COY COTTRELL MD Jul 18, 2021 11:21
--- NOTE | 2021-07-18 11:21 | PDOC4 ---
Procedure Note: ICD 10 Code: ICD 10 Code: M54.17 M51.87 Procedure Note: Patient was consented for lumbar epidural steroid injection with fluoroscopic guidance. Risks were discussed including but not limited to: Bleeding, infection, possibility of epidural hematoma and subsequent neurological compromise, dural puncture, headaches, spinal cord and/or nerve damage, side effects of steroid medication, and poor results regarding pain control. Patient understands and wished to proceed. Procedure is lumbar epidural steroid injection under local anesthetic using sterile prep and drape at the L5-S1 level using C-arm fluoroscopic guidance in both AP and lateral views medications injected is 20 mg dexamethasone +10mL preservative-free normal saline and 2 mL contrast- condition at discharge is stable patient tolerated procedure well had no complications. COY COTTRELL MD Jul 18, 2021 11:21
== END | disposition home or self-care (01) ==
LOC: PNCL 09:51
PROVIDERS: ATTEND Anesthesiology
DX: M51.16 Intervertebral disc disorders with radiculopathy, lumbar region (principal); M51.17 Intervertebral disc disorders with radiculopathy, lumbosacral region; M50.10 Cervical disc disorder with radiculopathy, unspecified cervical region; M96.1 Postlaminectomy syndrome, not elsewhere classified; Z79.899 Other long term (current) drug therapy; Z88.6 Allergy status to analgesic agent
CPT/HCPCS: 62323; J1100; Q9965

== ENCOUNTER → 2021-07-31 | Outpatient (CLI) | payer MEDICAID ==
[~2021-07-31] MED LIST changes: +BUPIVACAINE MPF 0.25% 10 ML VIAL. ONE; -IOHEXOL 180 MG/ML 10 ML VIAL. ONE; +LIDOCAINE 1% PF 2 ML VIAL. ONE; +LIDOCAINE 2% PF 5 ML VIAL. ONE
--- NOTE | 2021-07-31 15:57 | PDOC ---
Progress Note - Pain Clinic Date of Service: DOS: DATE: 07/31/21 TIME: 15:51 Diagnosis: Dx: Lumbar and lumbosacral spondylosis Lumbar degenerative disease Cervical radiculopathy with cervical degenerative disease and cervical postlaminectomy syndrome History or Present Illness: HPI: 55-year-old female returns for follow-up status post bilateral lumbar facet injections with 80% improvement following the last injection patient also has pain in the low back and lower extremities however after lumbar epidural steroid injection on July 18, she is doing much better with no longer having pain in the lower extremities but significant pain in the low back itself worse with rotation of motion as well as extension lumbar spine forward flexion lumbar spine walking standing for prolonged periods as well as sitting for more than about 30 minutes exacerbates the pain as well. Patient reports no loss of motor function but significant fatigability the lower extremities although no radiation to the lower extremities currently. Patient reports her pain is 8 on scale 10 is worse over the past week 7 on average 6 its least is a 7 today. Patient describes the pain as aching sharp tight shooting stabbing burning tingling in the back radiating across the back can be constant severe with walking standing is waking her from sleep about every 4-5 hours. Patient reports no bowel or bladder incontinence. Physical Exam: VS: Blood pressure is 117/63 pulse 71 respirations 18 temperature 98.1 F weight is 211 pounds. PE: PHYSICAL EXAMINATION: GENERAL: The patient is awake, alert, oriented, appropriate, very pleasant in demeanor HEENT: Shows normocephalic, atraumatic. Extraocular movements are intact and symmetrical. Oral cavity: Mucous membranes moist and pink. Dentition is intact. NECK: Shows anterior throat supple without palpable lymphadenopathy noted. Swallow reflex symmetrical. CHEST: Shows normal on inspection. Breath sounds are clear bilaterally. HEART: Shows S1, S2 clear. No murmurs auscultated. ABDOMEN: Soft, nontender, nondistended. No palpable organomegaly is noted. BACK: Shows spine grossly in the midline. Normal-appearing cervical lordotic curvature. There is slightly increased thoracic kyphosis, some minor flattening of the lumbar lordotic curvature. Lumbar paraspinous muscles show symmetrical on inspection, on palpation shows some moderate tenderness diffusely throughout the upper, middle and lower distribution of the paraspinous muscles , but without specific trigger points, without radiation of pain. The patient has good rotational motion of the lumbar spine, both laterally as well as extension and flexion with significant tenderness with right lateral rotation as well as left lower rotation but worse on the right greater than 10 degrees as well as extension and axial loading lumbar spine with significant pain across the back and the right greater than left lumbar spine as well forward flexion is performed at 45 degrees without significant pain reported. No tenderness over t he spinous processes, sacrum or sacroiliac regions. EXTREMITIES: Lower extremities show deep tendon reflexes 2+ in the patellar and tendo calcaneus tendons. Motor exam is 4 on a scale of 5 with right dorsiflexion, extension, quadriceps and hamstring flexion and 4/5 on the left. Peripheral pulses are 1 posterior tibial. No peripheral edema is noted bilaterally. Lower extremities are warm and dry to touch, equal in color and appearance. SKIN: Shows warm and dry, good turgor. No edema. No sores, rashes or bruising throughout. Procedure: Procedure: Options discussed with patient. Patient's old chart was reviewed as her current medication regimen updated current review of systems updated today as well. We will proceed with bilateral L4-5 and L5-S1 radiofrequency ablation today of the medial branches, with fluoroscopic guidance. Risks were discussed including but not limited to: Bleeding, infection, possibility of epidural hematoma and subsequent neurological compromise, dural puncture, headaches, spinal cord and/or nerve damage, potential thermal damage to the surrounding structures including motor nerves and permanent ischemic injury, side effects of steroid medication, and poor results regarding pain control. Patient understands and wished to proceed. Patient return to clinic in approximate 4 weeks for follow- up, was counseled as return appointment, activity level, and side effects to be aware of. Medication Injected: Med Injected: Under sterile prep and drape patient in prone position using C-arm fluoroscopic guidance patient's lumbar spine was visualized in both AP oblique and lateral views using 1% lidocaine to topically anesthetize the areas overlying the L3-4, L4-5 and L5-S1 facet joints at the point of the medial branches. Using a 22- gauge insulated radiofrequency needle with curved tips and stylette, the needles were advanced to contact the region of the facet with the medial branch targets. This was repeated at the L3-4 L4-5 and L5-S1 levels. Stylette was removed and using radiofrequency probe inserted into each needle individually at each level and then motor tested with no motor stimulation of the lower extremity. Patient did have some multifidus musculature contraction in the lumbar spine only but without radiation. At this time 1 cc of 2% lidocaine was then injected in each needle after motor testing but prior to radiofrequency ablation. Needle position was confirmed continuously throughout the radiofrequency ablation with both AP oblique and lateral views at each level. At this time radiofrequency ablation was carried out each level for 60 seconds at 80 C x 2 at each level with the tip of the needle turned 90 degrees after the first 60 seconds and then subsequent 60 seconds of radiofrequency ablation. Once radiofrequency ablation was completed solution containing 0.25% bupivacaine 1 cc and 20 mg dexamethasone was injected. Sabina were then withdrawn. The procedure was repeated for the contralateral side as described as well. Patient had no paresthesias throughout the procedure no radiation of pain into the lower extremities no lower extremity motor response with motor testing bilaterally. Please see radiofrequency flowsheet for levels, temperatures, impedance, etc. Condition at Discharge: Condition at Discharge: Condition at discharge is stable, patient tolerated the procedure well and had no complications. COY COTTRELL MD July 31, 2021 15:57
== END | disposition home or self-care (01) ==
LOC: PNCL 13:49
PROVIDERS: ATTEND Anesthesiology
DX: M47.816 Spondylosis without myelopathy or radiculopathy, lumbar region (principal); M47.817 Spondylosis without myelopathy or radiculopathy, lumbosacral region; M51.36 Other intervertebral disc degeneration, lumbar region; M50.10 Cervical disc disorder with radiculopathy, unspecified cervical region; M96.1 Postlaminectomy syndrome, not elsewhere classified; Z79.899 Other long term (current) drug therapy; Z88.6 Allergy status to analgesic agent
CPT/HCPCS: 64635; 64636; J1100; J3490